=== PATIENT | female | born 1965 | race Caucasian/White ===

== ENCOUNTER 2017-10-29 06:15 | Emergency (ER) | payer OTHER ==
[~2017-10-29] VITALS: Ht 157.5 cm; Wt 90.7 kg
[2017-10-29] MEDS ORDERED: LANTUS SOL100 UNIT/1 (06:29)
[2017-10-29] MEDS ORDERED: HUMALOG100 UNIT/1 SUBCUTANEO (06:29)
[2017-10-29] MEDS ORDERED: ROSUVASTATIN CAL5 MG PO (06:30)
[2017-10-29] MEDS ORDERED: ATENOLOL50 MG PO (06:30)
[2017-10-29] MEDS ORDERED: XOPENEX0.63 MG/3 IH (06:30)
[2017-10-29] MEDS ORDERED: VASOTEC5 MG PO (06:30)
[2017-10-29] MEDS ORDERED: ASPIR-LOW81 MG PO (06:30)
[2017-10-29] MEDS ORDERED: LEVALBUTER0.31 MG/3 IH (06:31)
[2017-10-29] MEDS ORDERED: IPRAT-ALBUT 0.5-3 ML IH (06:32)
[2017-10-29] MEDS ORDERED: PREDNISONE10 MG PO (10:59)
[2017-10-29] MEDS ORDERED: ALBUTEROL2.5 MG/3 M IH (10:59)
== END 2017-10-29 11:11 | disposition home or self-care (01) ==
LOC: ER 06:15
DX: J45.998 Other asthma (principal)